=== PATIENT | male | born 1955 | race Two or more races ===

== ENCOUNTER 2025-03-23 01:58 | Emergency (ER) | payer OTHER ==
[~2025-03-23] VITALS: Ht 162.6 cm; Wt 57.6 kg
[2025-03-23 04:21] VITALS: BP 121/71; TEMP 98.7; O2SAT 98
== END 2025-03-23 04:22 ==
LOC: ER 02:06
DX: E11.9 Type 2 diabetes mellitus without complications (principal); H40.9 Unspecified glaucoma; I10 Essential (primary) hypertension
CPT/HCPCS: 82962-TC